=== PATIENT | male | born 1980 | race Caucasian/White ===

== ENCOUNTER 2024-09-29 13:52 | Emergency (ER) | payer BC, SELFPAY ==
[2024-09-29 13:52] VITALS: BMI 25.2
[2024-09-29 14:22] VITALS: BP 107/76
[2024-09-29 14:50] LABS: % Basophils 1.4 % (0-2); % Eosinophils 4.3 % (0-6); % Immature Granulocytes 0.2 % (0-0.5); % Lymphocytes 37.3 % (20.5-51.1); % Monocytes 7.4 % (1.7-9.3); % Neutrophils 49.4 % (42.2-75.2); Absolute Basophils 0.1 10^3/uL (0-0.2); Absolute Eosinophils 0.2 10^3/uL (0-0.7); Absolute Lymphocytes 2.1 10^3/uL (1.2-3.4); Absolute Monocytes 0.4 10^3/uL (0.1-0.6); Absolute Neutrophils 2.7 10^3/uL (1.4-6.5); Hematocrit 43.2 % (39.0-52.0); Hemoglobin 14.1 g/dL (13.0-18.0); Mean Corp Hgb Conc. 32.6 g/dL (33.0-37.0); Mean Corpuscular Volume 91.9 fL (80.0-94.0); Mean Platelet Volume 10.1 fL (7.4-10.4); Nucleated Red Blood Cells % 0 % (-); Platelet Count 220 10^3/uL (130-400); Red Cell Dist. Width 11.9 % (11.5-14.5); White Blood Cell Count 5.5 10^3/uL (4.8-10.8)
[2024-09-29 15:05] LABS: ALT (SGPT) 47 U/L (0-50); AST (SGOT) 36 U/L (17-59); Albumin 4.5 g/dl (3.5-5.0); Alkaline Phosphatase 63 U/L (38-126); Blood Urea Nitrogen 17 mg/dl (9-20); Calcium 9.4 mg/dl (8.4-10.2); Carbon Dioxide 27 mmol/L (22-30); Chloride 103 mmol/L (98-107); Direct Bilirubin 0.1 mg/dl (0.0-0.4); Glucose 96 mg/dl (70-99); Lipase 157 U/L (23-300); Potassium 4.9 mmol/L (3.5-5.1); Sodium 138 mmol/L (135-145); Total Bilirubin 1.2 mg/dl (0.2-1.3); eGFR > 60.00
[2024-09-29 15:08] LABS: Urine Albumin Negative (Neg - Trace); Urine Bilirubin Negative (Negative); Urine Character Clear (Clear); Urine Color Yellow; Urine Glucose Negative (Negative); Urine Ketone Negative (Negative); Urine Leukocyte Negative (Negative); Urine Nitrite Negative (Negative); Urine Occult Blood Negative (Negative); Urine Urobilinogen Negative (Neg - 1+); Urine pH 6.5 (5.0-9.0)
[2024-09-29 16:00] VITALS: BP 118/68
--- NOTE | 2024-09-29 16:38 | ED.GENMED ---
History of Present Illness
<Mady Morley MD, Resident - Last Filed: 09/29/24 20:06>
General
Chief Complaint: Abdominal Pain
Time Seen by Provider: 09/29/24 16:22
History of Present Illness
History of Present Illness:
44-year-old male with no significant past medical history presenting to the ED with abdominal pain. Patient notes has had abdominal pain located right upper quadrant and mid lower abdomen for the past 2 weeks. Notes pain is constant throughout the
day, is associated with nausea, and is aggravated by eating. Denies fever, vomiting, melena, hematochezia, chest pain, shortness of breath, urinary symptoms. Also notes intermittent constipation/diarrhea. Patient states has made adjustments to his
diet to decrease pain, has not taken any medications. Patient has a gluten-free diet since 6 years ago and has not had any abdominal pain since then. Denies sick contacts.
Past History
<Mady Morley MD, Resident - Last Filed: 09/29/24 20:06>
Past History
ED Past Medical History: None
ED Past Surgical History: Orthopedic
Review of Systems
<Mady Morley MD, Resident - Last Filed: 09/29/24 20:06>
Review of Systems
Constitutional: Reports no symptoms
EENT: Reports no symptoms
Respiratory: Reports no symptoms
Cardiac: Reports no symptoms
ABD/GI: Reports abdominal pain, nausea, diarrhea and constipated
: Reports no symptoms
Musculoskeletal: Reports no symptoms
Skin: Reports no symptoms
Neurological: Reports no symptoms
Endocrine: Reports no symptoms
Hematologic/Lymphatic: Reports no symptoms
Phy Exam
<Mady Morley MD, Resident - Last Filed: 09/29/24 20:06>
Physical Exam
Physical Exam:
GENERAL: Alert, awake, in no apparent distress.
EYE: Pupils equal and reactive.
NECK: Supple, no significant adenopathy.
ENT: o/p clr, mmm.
CARDIAC: Regular rate and rhythm.
LUNGS: Clear breath sounds bilaterally, no acute respiratory distress, no wheezes/rales/rhonchi
ABDOMEN: Soft, without focal tenderness, no r/g, no cvat.
NEUROLOGICAL: Alert and oriented, no focal neuro deficits
SKIN: Warm and dry, skin intact.
MUSCULOSKELETAL: No edema, well perfused.
PSYCH: Normal and appropriate interaction.
Course
<Mady Morley MD, Resident - Last Filed: 09/29/24 20:06>
Orders/Labs/Results
Orders:
Orders
09/29/24 14:31
Complete Blood Count/With Diff Urgent
Comprehensive Metabolic Panel Urgent
LFT [Unkfo-Hiua-Nbeolmp] Urgent
Lipase Urgent
Urinalysis Reflex To Culture Urgent
Date Specimen was Collected: 09/29/24
Time Specimen was Collected: 14:25
09/29/24 17:08
CT Abd/pel W Iv And Oral Contr Urgent
Comment:
Reason For Exam: RLQ tenderness
Iohexol [Omnipaque] See Protocol PO NOW STA
09/29/24 18:11
Ondansetron Injectable [Zofran] 4 mg IV NOW STA
Abnormal Lab Results
09/29/24
14:31
MCHC 32.6 L g/dL
(33.0-37.0)
09/29/24 14:31
09/29/24 14:31
Vital Signs
Initial and Last Documented VS:
Initial Vital Signs
Temp Pulse Resp BP Pulse Ox
98.2 F 69 13 107/76 99
09/29/24 14:22 09/29/24 14:22 09/29/24 14:22 09/29/24 14:22 09/29/24 14:22
Last Documented Vital Signs
Temp Pulse Resp BP Pulse Ox
98.2 F 64 16 115/74 99
09/29/24 16:00 09/29/24 18:00 09/29/24 18:00 09/29/24 18:00 09/29/24 18:00
<Emily Barrett, DO - Last Filed: 09/29/24 23:44>
Orders/Labs/Results
Orders:
Orders
09/29/24 14:31
Complete Blood Count/With Diff Urgent
Comprehensive Metabolic Panel Urgent
LFT [Yagys-Ieof-Ydcyxlx] Urgent
Lipase Urgent
Urinalysis Reflex To Culture Urgent
Date Specimen was Collected: 09/29/24
Time Specimen was Collected: 14:25
09/29/24 17:08
CT Abd/pel W Iv And Oral Contr Urgent
Comment:
Reason For Exam: RLQ tenderness
Iohexol [Omnipaque] See Protocol PO NOW STA
09/29/24 18:11
Ondansetron Injectable [Zofran] 4 mg IV NOW STA
Abnormal Lab Results
09/29/24
14:31
MCHC 32.6 L g/dL
(33.0-37.0)
09/29/24 14:31
09/29/24 14:31
Vital Signs
Initial and Last Documented VS:
Initial Vital Signs
Temp Pulse Resp BP Pulse Ox
98.2 F 69 13 107/76 99
09/29/24 14:22 09/29/24 14:22 09/29/24 14:22 09/29/24 14:22 09/29/24 14:22
Last Documented Vital Signs
Temp Pulse Resp BP Pulse Ox
98.2 F 64 16 115/74 99
09/29/24 16:00 09/29/24 18:00 09/29/24 18:00 09/29/24 18:00 09/29/24 18:00
<Mady Morley MD, Resident - Last Filed: 09/29/24 20:06>
MDM/Problems Addressed
Differential Diagnosis Includes:
Biliary colic
Gastroenteritis
Appendicitis
Cholelithiasis
Pancreatitis
Nephrolithiasis
MDM/Problems Addressed:
- CBC, CMP
- Lipase
<Mady Morley MD, Resident - Last Filed: 09/29/24 20:06>
*Critical Care Note
Total Time (30-74mins, 75-104mins- exclusive of procedures): Not Applicable
<Mady Morley MD, Resident - Last Filed: 09/29/24 20:06>
Update Note
Update Note:
Abd/pelvis Ct: No significant acute abnormality. Normal appendix. No gall stones.
Likely transient small bowel-small bowel intussusception in LUQ.
Patient does not have LUQ tenderness. Will discharge patient.
ED Attending Note
<Mady Morley MD, Resident - Last Filed: 09/29/24 20:06>
-
Portions of this chart may have been created with voice recognition software.� Occasional wrong word or��sound alike� substitutions may have occurred due to the inherent limitations of voice recognition software.
<Emily Barrett DO - Last Filed: 09/29/24 23:44>
ED Attending Note
Patient seen and examined by attending physician: Yes
I performed a history and physical exam of patient and discussed management with resident, I reviewed resident's note and agree with documented findings and plan of care.: Yes
ED Attending Note:
I have reviewed and agree with Dr. Morley's history and treatment plan. 44-year-old male presenting with right lower quadrant abdominal pain starting 10 days ago. Patient states that constant dull ache, nonradiating with associated nausea.
Patient states that is worse with eating. Patient states that he last had abdominal pain before he went gluten-free 6 years ago. Patient denies eating any gluten recently. Patient denies fever, chills, vomiting, dysuria or hematuria. Patient
reports episodes of constipation followed by diarrhea. Patient denies history of kidney stones. Heart regular rate rhythm, lungs clear, abdomen soft nondistended right lower quadrant tenderness to palpation. No CVA tenderness bilaterally. Will
plan for labs, UA, CT abdomen/pelvis r/o appendicitis, kidney stone, UTI
Labs reviewed, unremarkable. UA negative for UTI. Electrolytes, lipase, creatinine, hemoglobin, white count within normal limits. CT abdomen pelvis reviewed, normal appendix with no acute significant findings. Stable for discharge with PCP
follow-up
Discharge Plan
Departure
Patient Disposition: Home (Routine Discharge)
Date of Disposition: 09/29/24
Time of Disposition: 20:00
Patient with high blood pressure during this ER visit?: No
Condition: Good
Discharge Problem:
Abdominal pain
Instructions: Nausea and Vomiting, Adult (DC), Abdominal Pain
Referrals:
NONE,* [Family Provider] -
Activity Restrictions/Additional Instructions:
You should come back to the emergency department if you develop severe abdominal pain, severe vomiting, fever, confusion or any symptoms that are concerning to you.
Interventions
Interventions:
*Risk Screen - Suicide Last Done: 09/29/24 14:22
*General Assessment Last Done: 09/29/24 14:22
*Neglect/Abuse Screening Last Done: 09/29/24 14:22
ED- Fall Risk Assessment Last Done: 09/29/24 16:36
*Nursing Disposition Last Done: 09/29/24 20:08
PB-Bwwome-Oqdlxdpnun Assessment Last Done: 09/29/24 16:36
Discharge Date and Time
Discharge Date/Time: 09/29/24 20:08
Print Language: NEPALI
[2024-09-29] MEDS: OMNIPAQUE 50 ML PO (17:15)
[2024-09-29 18:00] VITALS: BP 115/74
[2024-09-29] MEDS: ZOFRAN 4 MG IV (18:32)
== END 2024-09-29 20:08 | disposition home or self-care (01) ==
LOC: EMR 13:52
PROVIDERS: Physician Assistant; EMERGENCY PHYSICIAN Emergency Medicine
DX: R10.31 Right lower quadrant pain (principal); R11.0 Nausea
CPT/HCPCS: 96374; 99284; 74177; 80053; 80076; 81003; 83690; 85025; Q9967